=== PATIENT | male | born 1970 | race Caucasian/White ===

== ENCOUNTER 2018-03-12 19:02 | Emergency (ER) | payer OTHER ==
[~2018-03-12] VITALS: Ht 175.3 cm; Wt 70.6 kg
[~2018-03-12 19:02] MED LIST: NO MEDS; NOHOMEMEDS
[2018-03-12 20:11] LABS: HEMATOCRIT 40.5 % (38.0-50.0); HEMOGLOBIN 12.8 G/DL (12.5-16.6); MCH 25.7 PG (29.0-34.0); MCHC 31.6 G/DL (30.0-36.0); MCV 81.3 FL (86-99); PLATELET COUNT 357 K/uL (156-360); RBC DIS.WIDTH-CV 16.6 % (11.8-14.6); RBC DIS.WIDTH-SD 49.1 % (39-53); RED BLOOD COUNT 4.98 M/uL (4.00-5.50); WHITE BLOOD COUNT 9.3 K/uL (4.1-10.2)
[2018-03-12 20:21] LABS: CHLORIDE 108 mEq/L (99-109); POTASSIUM 4.2 mEq/L (3.7-5.4); SODIUM 142 mEq/L (136-147)
[2018-03-12 20:23] LABS: GLUCOSE 70 mg/dL (70-99)
[2018-03-12 20:27] LABS: CREATININE 0.9 mg/dL (0.6-1.3); GFR ESTIMATE (CALCULATED) > 59 mL/min/ (58.99-99999); UREA NITROGEN (BUN) 14 mg/dL (9-23)
[2018-03-12 20:31] LABS: TROP-I INTERPRETATION NEGATIVE; TROPONIN-I 0.01 ng/mL (0.0-0.30)
[2018-03-12] MEDS ORDERED: LISINOPRIL20 MG PO (22:45)
[2018-03-12 23:16] VITALS: BP 172/113
== END 2018-03-12 23:25 | disposition home or self-care (01) ==
LOC: EME 19:02
DX: I10 Essential (primary) hypertension (principal); F17.200 Nicotine dependence, unspecified, uncomplicated; Z88.0 Allergy status to penicillin
CPT/HCPCS: 71046; 80048; 84484; 85027; 93005; 99281; 99282

== ENCOUNTER 2018-04-07 12:14 | Emergency (ER) | payer OTHER ==
[~2018-04-07] VITALS: Ht 175.3 cm; Wt 74.9 kg
[~2018-04-07 12:14] MED LIST changes: +LISINOPRIL20 MG PO
[2018-04-07 12:33] VITALS: BP 144/108
== END 2018-04-07 14:30 | disposition left against medical advice (07) ==
LOC: EME 12:14
DX: M54.9 Dorsalgia, unspecified (principal); Z53.21 Procedure and treatment not carried out due to patient leaving prior to being seen by health care provider